=== PATIENT | male | born 1940 | race Caucasian/White ===

== ENCOUNTER → 2020-06-13 11:46 | Outpatient (CLI) | payer MEDICARE, OTHER, SELFPAY ==
[2020-06-13 14:23] LABS: COVID19 -Nasal RAPID Negative (Negative)
== END ==
PROVIDERS: PCP Family Medicine; Visit Provider Nurse Practitioner Family
DX: Z20.822 Contact with and (suspected) exposure to COVID-19 (principal)
CPT/HCPCS: 87635; C9803